=== PATIENT | male | born 1955 | race Caucasian/White ===

== ENCOUNTER 2020-08-10 06:22 | Day surgery (SDC) | payer BC ==
[~2020-08-10 06:22] MED LIST: Lactated Ringers 1,000 ML IV SCH
[2020-08-10] MEDS ORDERED: Lactated Ringers 1,000 ML IV ONE (09:05)
--- NOTE | 2020-08-10 09:11 | OP ---
SURGERY DATE/TIME: 08/10/2020 0803 PREOPERATIVE DIAGNOSIS: History of ulcerative colitis and rectal bleeding. POSTOPERATIVE DIAGNOSIS: Small polyp in the rectosigmoid area and ulcerative proctitis up to the distal sigmoid colon. PROCEDURE: Colonoscopy with cold forceps biopsy. SURGEON: Dr. Mccarthy. ANESTHESIA: MAC. Medications given by anesthesia department. HISTORY: The patient is a 65 year old white male patient who has history of colitis probably dating back 20 years. The patient has evaluations about every two to three years with colonoscopies for evaluation for development of possible colon cancer. The patient was reappraised of the risks of the procedure including the risk of perforation, phlebitis, untoward reaction to medication, bleeding and missed lesions. The patient verbalized his understanding and desired to have the procedure performed. DESCRIPTION OF PROCEDURE: The patient was given the medications by the anesthesia department. He had continuous pulse oximetry, ECG monitoring, intermittent blood pressure monitoring and tidal CO2 monitoring during the examination. He was placed in the left lateral decubitus position. A digital rectal examination was performed and revealed normal anal sphincter tone, no masses and normal prostate. The flexible Olympus pediatric colonoscope was used to intubate the rectum. A view of the colon was developed sequentially to the cecum. Upon insertion and withdrawal it was noted a small polyp at the verge between the area of active colitis and normal appearing colon at the distal sigmoid to rectal area this was biopsied using cold biopsy technique. There were also several biopsies that were taken throughout the area of colitis to rule out any dysplasia changes. The scope was removed from the patient who tolerated the procedure well and was sent back to OP recovery in good condition. The prep was noted to be good.
[2020-08-10 09:23] VITALS: O2SAT 99
[2020-08-10 09:25] VITALS: BP 120/83; PULSE 68
== END 2020-08-10 09:32 | disposition home or self-care (01) ==
LOC: SDC 06:22
PROVIDERS: ATTEND Family Medicine
DX: K51.20 Ulcerative (chronic) proctitis without complications (principal); D12.8 Benign neoplasm of rectum; Z87.19 Personal history of other diseases of the digestive system
CPT/HCPCS: 88305; J2704

== ENCOUNTER 2021-10-16 20:02 | Emergency (ER) | payer BC ==
[2021-10-16] MEDS ORDERED: Adacel Vial IM ONE (20:27)
[2021-10-16] MEDS ORDERED: XYLOCAINE 2% HCL 20 ML MDV IJ ONE (20:28)
[2021-10-16] MEDS ORDERED: XYLOCAINE 2% HCL 20 ML MDV ONE (20:30)
[2021-10-16] MEDS ORDERED: Vibramycin 100 MG PO ONE (20:42)
[2021-10-16] MEDS ORDERED: Augmentin 875-125 Tablet PO ONE (20:43)
--- NOTE | 2021-10-16 20:45 | ERPHSYRPT ---
- History of Present Illness Time Seen by Provider: 10/16/21 20:30 Source: patient Exam Limitations: no limitations Patient Subjective Stated Complaint: 2 fishing hooks into middle finger and base of index finger on rt hand Triage Nursing Assessment: pt was fishing and got a fishing hook caught into his middle finger and base of the index finger. No bleeding noted, pt has very minimal pain, rates it a 1. Pt able to move his fingers and rt hand without diff. Physician History: Patient is a 66-year-old male presents to our ED with 2 fishhooks impaled into his right index and right long finger. Patient was fishing at the time of the injury. Injury occurred just prior to arrival. Pain is minimal at this time. Tetanus is not up-to-date. Symptoms are mild to moderate in intensity. No specific worsening improving factors. Patient voices no other complaints or concerns at this time. Portions of this note were created with voice recognition technology. There may be grammatical, spelling, punctuation or sound alike errors Timing/Duration: today Severity: moderate Modifying Factors: Improves With: movement Associated Symptoms: denies symptoms Allergies/Adverse Reactions: No Known Drug Allergies Allergy (Verified 10/16/21 20:21) Home Medications: Acetaminophen 500 mg [Tylenol Extra Strength 500 mg] 500 mg PO UD PRN 03/21/18 [History] Diphenhydramine HCl 25 mg [Benadryl 25 mg Capsule] 25 mg PO HS 03/21/18 [History] Mesalamine [Asacol Hd] 800 mg PO TID 03/21/18 [History] Omeprazole 20 MG [Prilosec 20 mg] 40 mg PO DAILY 03/21/18 [History] Simvastatin 20Mg [Zocor 20Mg] 1 tab PO DAILY 04/02/18 [History] Acetaminophen 325 mg [Tylenol 325 mg] 325 mg PO DAILY 07/26/20 [History] Calcium Carbonate/Vitamin D3 [Calcium 600-Vit D3 400 Tablet] 1 each PO DAILY 07/26/20 [History] Cetirizine HCl [Zyrtec] 10 mg PO DAILY 07/26/20 [History] Diphenhydramine HCl 25 mg [Benadryl 25 mg Capsule] 75 mg PO HS 07/26/20 [History] Folic Acid 1 mg [Folate 1 mg] 400 mcg PO DAILY 07/26/20 [History] Mesalamine [Asacol] 800 mg PO DAILY 07/26/20 [History] Multivitamin 1 each PO DAILY 07/26/20 [History] Omeprazole 20 mg PO DAILY 07/26/20 [History] Simvastatin 10 mg [Zocor 10MG] 10 mg PO DAILY 07/26/20 [History] Hx Tetanus, Diphtheria Vaccination/Date Given: No Hx Influenza Vaccination/Date Given: No Hx Pneumococcal Vaccination/Date Given: No Immunizations Up to Date: No Travel Risk - International Travel Have you traveled outside of the country in past 3 weeks: No - Coronavirus Screening Are you exhibiting any of the following symptoms?: No Close contact with a COVID-19 positive Pt in past 14-21 Days: No - Vaccine Status Have you recieved a Covid-19 vaccination: Yes Personnel Officer: [employer] - Vaccination Dates Date of 2cond Vaccination (if applicable): . - Review of Systems Constitutional: No Symptoms, No Fever, No Chills Eyes: No Symptoms Ears, Nose, & Throat: No Symptoms Respiratory: No Symptoms, No Cough, No Dyspnea Cardiac: No Symptoms, No Chest Pain, No Edema, No Syncope Abdominal/Gastrointestinal: No Symptoms, No Abdominal Pain, No Nausea, No Vomiting, No Diarrhea Genitourinary Symptoms: No Symptoms, No Dysuria Musculoskeletal: No Symptoms, No Back Pain, No Neck Pain Skin: No Symptoms, No Rash Neurological: No Symptoms, No Dizziness, No Focal Weakness, No Sensory Changes Psychological: No Symptoms Endocrine: No Symptoms Hematologic/Lymphatic: No Symptoms Immunological/Allergic: No Symptoms All Other Systems: Reviewed and Negative - Past Medical History Pertinent Past Medical History: Yes Neurological History: No Pertinent History ENT History: No Pertinent History Cardiac History: High Cholesterol Respiratory History: Asthma, COPD Endocrine Medical History: No Pertinent History Musculoskeletal History: Fractures GI Medical History: Colitis, Gallbladder Disease, Hernia History: No Pertinent History Psycho-Social History: No Pertinent History Male Reproductive Disorders: No Pertinent History Other Medical History: ulcerative colitis. fx back - Past Surgical History Past Surgical History: Yes Neuro Surgical History: No Pertinent History Cardiac: No Pertinent History, Other Respiratory: No Pertinent History Gastrointestinal: Cholecystectomy, Hernia Repair Genitourinary: No Pertinent History Musculoskeletal: Orthopedic Surgery, Other Male Surgical History: Testicular Surgery Other Surgical History: cervical diskectomy, neck fusion, fractured back, fractured lt and rt wrist - Social History Smoking Status: Former smoker How long have you smoked: 40 Exposure to second hand smoke: No Drug Use: none Patient Lives Alone: No - Nursing Vital Signs Nursing Vital Signs: Initial Vital Signs Temperature 98.5 F 10/16/21 20:13 Pulse Rate 80 10/16/21 20:13 Respiratory Rate 16 10/16/21 20:13 Blood Pressure 162/75 10/16/21 20:13 O2 Sat by Pulse Oximetry 96 10/16/21 20:13 Pain Scale Pain Intensity 1 - Physical Exam General Appearance: no apparent distress, alert Eye Exam: PERRL/EOMI, eyes nml inspection Ears, Nose, Throat Exam: normal ENT inspection, TMs normal, pharynx normal, moist mucous membranes Neck Exam: normal inspection, non-tender, supple, full range of motion Respiratory Exam: normal breath sounds, lungs clear, airway intact, No chest tenderness, No respiratory distress Cardiovascular Exam: regular rate/rhythm, normal heart sounds, normal peripheral pulses Gastrointestinal/Abdomen Exam: soft, normal bowel sounds, No tenderness, No mass Back Exam: normal inspection, normal range of motion, No CVA tenderness, No vertebral tenderness Extremity Exam: normal inspection, normal range of motion, pelvis stable, other (A fishhook prong impaled at the right index finger MCP and right middle finger tip. Both fingers are neurovascular intact distally. Compartments are soft. Cap refill less than 2 seconds. Radial pulse palpable.) Neurologic Exam: alert, oriented x 3, cooperative, normal mood/affect, sensation nml, No motor deficits Skin Exam: normal color, warm, dry, No rash Lymphatic Exam: No adenopathy SpO2 Interpretation: normal SpO2: 96 O2 Delivery: Room Air - Course Nursing assessment & vital signs reviewed: Yes Ordered Tests: Medication Summary Discontinued Medications Generic Name Dose Route Start Last Admin Trade Name Freq PRN Reason Stop Dose Admin Amoxicillin/Clavulanate Potassium 875 mg 10/16/21 20:43 Amox Tr/Potassium Clavulanate 875 Mg Tablet PO 10/16/21 20:44 STAT ONE Diphtheria/Tetanus/Acell Pertussis Confirm 10/16/21 20:27 Tdap --Diph,Pertuss(Acell),Tet Vac/Pf 0.5 Ml Vial Administered 10/16/21 20:28 Dose 0.5 ml IM .STK-MED ONE Doxycycline Hyclate 100 mg 10/16/21 20:42 Doxycycline Hyclate 100 Mg Tablet PO 10/16/21 20:43 STAT ONE Lidocaine HCl 5 ml 10/16/21 20:28 10/16/21 20:29 Lidocaine Hcl 2% 20 Ml Mdv IJ 10/16/21 20:29 5 ml STAT ONE Administration Lidocaine HCl Confirm 10/16/21 20:30 Lidocaine Hcl 2% 20 Ml Mdv Administered 10/16/21 20:31 Dose 4 ml .ROUTE .STK-MED ONE - Progress Progress: improved Progress Note: 10/16/21 20:46 Foreign body removal Foreign body removal note Removal of 2 fishhooks. 1 fishhook at the radial aspect of the right index finger MCP. The second hook at the tip of the right ring finger Foreign bodies were isolated. Each fishhook at 3 prongs with barbs. Each fishhook greg was removed with the exception of the greg that was impaled in the patient's skin. The area was prepped in the standard sterile fashion. Alcohol was used to prep the areas. Anesthesia was achieved with 2% lidocaine. A pproximately 2 cc of lidocaine was injected into each of the involved sites. Excellent anesthesia was obtained. The impaled greg was then driven through the skin out of the adjacent skin and the greg was cut off using a wire winder. The same procedure was implemented for the second fishhook as well. The fishhook was then backed out of the skin at both locations. Patient tolerated procedure well. Patient neurovascular intact distally preprocedure. Patient neurovascular tact distally post procedure. Patient received a tetanus update. Patient received Augmentin oral antibiotic after procedure. A prescription for Augmentin was for the patient's pharmacy. Patient tolerated procedure well. No complications. Patient agrees to follow-up with primary care doctor within 48 hours for ree valuation. Portions of this note were created with voice recognition technology. There may be grammatical, spelling, punctuation or sound alike errors Counseled pt/family regarding: diagnosis, need for follow-up - Departure Departure Disposition: Home Clinical Impression: Fish hook in finger Condition: Stable Critical Care Time: No Referrals: MIYA SALEH [Primary Care Provider] - Follow up/PCP as directed Additional Instructions: Discharge/Care Plan JUDIE HEATONSONIA was seen on 10/16/21 in the Emergency Room. The patient was counseled regarding Diagnosis,Lab results, Imaging studies, need for follow up and when to return to the Emergency Room. Prescriptions given: Discharge Note I have spoken with the patient and/or caregivers. I have explained the patient's condition, diagnosis and treatment plan based on the information available to me at this time. I have answered the patient's and/or caregiver's questions and addressed any concerns. The patient and/or caregivers have as good understanding of the patient's diagnosis, condition and treatment plan as can be expected at this point. The vital signs have been stable. The patient's condition is stable and appropriate for discharge from the emergency department. The patient will pursue further outpatient evaluation with the primary care physician or other designated or consulting physician as outlined in the discharge instructions. The patient and/or caregivers are agreeable to this plan of care and follow-up instructions have been explained in detail. The patient and/or caregivers have received these instruction. The patient/and or caregivers are aware that any significant change in condition or worsening of symptoms should prompt an immediate return to this or the closest emergency department or call 911. Prescriptions: Amox Tr/Potass Clav. 875 mg [Augmentin 875-125 Tablet] 875 mg PO BID 7 Days #14 tablet
[2021-10-16] MEDS ORDERED: Augmentin 875-125 Tablet ONE (20:46)
[2021-10-16 21:30] VITALS: BP 149/89; PULSE 90; O2SAT 94
== END 2021-10-16 21:00 | disposition home or self-care (01) ==
LOC: ED 20:02
DX: S61.240A Puncture wound with foreign body of right index finger without damage to nail, initial encounter (principal); S61.242A Puncture wound with foreign body of right middle finger without damage to nail, initial encounter; W26.8XXA Contact with other sharp object(s), not elsewhere classified, initial encounter; W45.8XXA Other foreign body or object entering through skin, initial encounter; E78.5 Hyperlipidemia, unspecified; J44.9 Chronic obstructive pulmonary disease, unspecified; Z79.899 Other long term (current) drug therapy
CPT/HCPCS: 10120; 90471; 90715; 96372; 99283; A9270-GY

== ENCOUNTER 2024-11-18 06:05 | Day surgery (SDC) | payer MEDICARE ==
[2024-11-18] MEDS: Lactated Ringers 1,000 ML IV SCH (06:30)
[2024-11-18 06:33] VITALS: RESP 18
[2024-11-18] MEDS ORDERED: propofoL IV ONE ×2 (07:33→07:46)
[2024-11-18] MEDS ORDERED: Xylocaine-Mpf 2% 5 Ml Vial ONE (07:34)
[2024-11-18 08:33] VITALS: TEMP 97.4
[2024-11-18 08:45] VITALS: BP 135/80; PULSE 49; O2SAT 98
--- NOTE | 2024-11-21 10:25 | OP ---
SURGERY DATE/TIME: 11/18/2024 [id number] PREOPERATIVE DIAGNOSIS: History of ulcerative colitis, presenting for screening colonoscopy. POSTOPERATIVE DIAGNOSIS: Small polyp in the rectosigmoid area. PROCEDURE: Colonoscopy with cold forceps biopsies and cold snare polypectomy. SURGEON: Kevin Mccarthy MD ANESTHESIA: Medication given by the anesthesia department. INDICATIONS: The patient is a 69-year-old white male patient with a long history of ulcerative colitis who presents today, 5 years from his previous exam, for screening evaluation. The patient was apprised of the risks of the procedure including risk of perforation, phlebitis, untoward reaction to medication, bleeding, and missed lesions. The patient verbalized his understanding and desired to have the procedure performed. DESCRIPTION OF PROCEDURE AND FINDINGS: The patient was given medication by the anesthesia department. He had continuous pulse oximetry, ECG monitoring, and intermittent blood pressure monitoring during the examination. He was placed in the left lateral decubitus position. Digital rectal examination was performed and revealed normal anal sphincter tone, no masses, and a normal prostate. The flexible Olympus videocolonoscope was used to intubate the rectum. A view of the colon was developed sequentially to the cecum. Upon insertion and withdrawal was noted an approximately 1 cm polyp in the rectosigmoid area. This was removed using cold snare technique and retrieved for pathologic evaluation. Random biopsies were obtained otherwise in the colon using the cold forceps biopsy instrument to rule out underlying dysplasia. The scope was removed from the patient who tolerated the procedure well and was sent back to outpatient recovery in good condition. The prep was noted to be fair to good.
== END 2024-11-18 08:58 | disposition home or self-care (01) ==
LOC: SDC 06:05
PROVIDERS: ATTEND Family Medicine
DX: Z12.11 Encounter for screening for malignant neoplasm of colon (principal); Z87.19 Personal history of other diseases of the digestive system; D12.5 Benign neoplasm of sigmoid colon